=== PATIENT | female | born 1930 | race African-American/Black ===

== ENCOUNTER 2019-05-26 04:59 | Inpatient (IN) | payer MEDICARE, OTHER ==
[~2019-05-26] VITALS: Ht 172.7 cm; Wt 83.5 kg
[2019-05-26] MEDS ORDERED: SODIUM CHLORIDE 0.9% 1,000 ML IV ONE (05:21)
[2019-05-26 06:12] LABS: HEMATOCRIT. 37.6 % (36.0-48.0); HEMOGLOBIN. 12.8 g/dL (12.0-16.0); MEAN CORPUSCULAR HEMOGLOBIN 23.7 pg (28.0-32.0); MEAN CORPUSCULAR VOLUME 69.6 fL (81.0-99.0); RED CELL DISTRIBUTION WIDTH 32.2 % (11.6-14.6)
[2019-05-26 06:19] LABS: CHLORIDE 93 mEq/L (98-107)
[2019-05-26 06:54] LABS: CLARITY URINE CLEAR (CLEAR); COLOR URINE YELLOW (YELLOW); KETONES URINE NEGATIVE (NEGATIVE); LEUKOCYTE ESTERASE URINE 2+ (NEGATIVE); NITRITE URINE NEGATIVE (NEGATIVE); OCCULT BLOOD URINE NEGATIVE (NEGATIVE); PROTEIN URINE NEGATIVE (NEGATIVE); SPECIFIC GRAVITY URINE 1.005 (1.005-1.030)
[2019-05-26 07:18] LABS: PLATELET ESTIMATE DECREASED
[2019-05-26 07:20] LABS: PLATELET 77 x1000/uL (130-400)
[2019-05-26] MEDS ORDERED: IOHEXOL-300 100 ML BOTTLE ONE (07:37)
[2019-05-26] MEDS ORDERED: LEVOFLOXACIN 750MG PREMIX 150 ML IV ONE (08:45)
[2019-05-26 08:52] LABS: INR 1.6; PARTIAL THROMBOPLASTIN TIME 34.6 sec (23.4-31.0); PROTHROMBIN TIME 16.9 sec (9.6-11.0)
[2019-05-26] MEDS ORDERED: GUAIFENESIN 200MG/10ML SUGAR FREE UDC PO PRN (10:30)
[2019-05-26] MEDS ORDERED: HYDROCODONE/ACETAMINOPHEN 5/325MG TABLET PO PRN (10:30)
[2019-05-26] MEDS ORDERED: LORAZEPAM 0.5MG TABLET PO PRN (10:30)
[2019-05-26] MEDS ORDERED: CLONIDINE 0.1MG TABLET PO PRN (10:30)
[2019-05-26] MEDS: DEXT 5%/0.9% NACL 1,000 ML IV SCH ×2 (10:30→19:19)
[2019-05-26] MEDS ORDERED: IPRATROPIUM/ALBUTEROL 0.5-3(2.5)MG/3ML NEB NEB PRN (10:30)
[2019-05-26] MEDS ORDERED: ACETAMINOPHEN 650MG SUPP PR PRN (10:30)
[2019-05-26] MEDS ORDERED: ACETAMINOPHEN 650MG/20.3ML UDC GT PRN (10:30)
[2019-05-26] MEDS ORDERED: NA PHOS,M-B/NA PHOS,DI-BA ENEMA 118ML PR PRN (10:30)
[2019-05-26] MEDS ORDERED: MAGNESIUM/ALUMINUM HYDROXIDE/SIMETHICONE 30ML UDC PO PRN (10:30)
[2019-05-26] MEDS ORDERED: ONDANSETRON HCL 4MG/2ML INJ IV PRN (10:30)
[2019-05-26] MEDS ORDERED: DIPHENHYDRAMINE 50MG/ML VIAL IV PRN (10:30)
[2019-05-26] MEDS ORDERED: MORPHINE SULFATE 2 MG/ML CPJ (NOT FOR IM USE) IV PRN (10:30)
[2019-05-26] MEDS ORDERED: ACETAMINOPHEN 325MG TABLET PO PRN (10:30)
[2019-05-26] MEDS ORDERED: DOCUSATE SODIUM 100MG CAPSULE PO PRN (10:30)
[2019-05-26] MEDS: PANTOPRAZOLE SODIUM 40 MG/VIAL IV SCH ×2 (13:43→14:20)
[2019-05-26] MEDS ORDERED: PIPERACILLIN/TAZOBACTAM 3.375 G in DEXT 5% WATER 100 ML IV NR (14:00)
[2019-05-26 14:39] LABS: *AMPHETAMINES SCREEN URINE NEGATIVE (NEGATIVE); *BARBITURATES SCREEN URINE NEGATIVE (NEGATIVE); *BENZODIAZEPINES SCREEN URINE NEGATIVE (NEGATIVE); *COCAINE SCREEN URINE NEGATIVE (NEGATIVE)
[2019-05-26 14:40] LABS: CANNABINOID URINE SCREEN NEGATIVE (NEGATIVE); METHADONE URINE SCREEN NEGATIVE (NEGATIVE); OPIATES URINE SCREEN NEGATIVE (NEGATIVE); PHENCYCLIDINE URINE SCREEN NEGATIVE (NEGATIVE)
[2019-05-26] MEDS ORDERED: FUROSEMIDE 40MG/4ML VIAL IVP ONE (18:30)
[2019-05-26 21:11] VITALS: BP 124/77
[2019-05-26 21:58] VITALS: BP 129/59
[2019-05-26] MEDS: PIPERACILLIN/TAZOBACTAM 2.25 G in DEXTROSE 5% WATER 50 ML IV SCH (23:49)
[2019-05-27 00:22] VITALS: BP 97/39
[2019-05-27] MEDS ORDERED: FAMO20TA8 PO (03:43)
[2019-05-27] MEDS ORDERED: P20 PO (03:43)
[2019-05-27] MEDS ORDERED: VALS80TA30 PO (03:43)
[2019-05-27] MEDS ORDERED: ATEN50TA PO (03:43)
[2019-05-27 04:00] VITALS: BP 125/47
[2019-05-27] MEDS: PIPERACILLIN/TAZOBACTAM 2.25 G in DEXTROSE 5% WATER 50 ML IV SCH ×3 (05:33→17:00)
[2019-05-27 07:14] LABS: HEMATOCRIT. 33.8 % (36.0-48.0); HEMOGLOBIN. 11.6 g/dL (12.0-16.0); MEAN CORPUSCULAR HEMOGLOBIN 23.6 pg (28.0-32.0); MEAN CORPUSCULAR VOLUME 68.9 fL (81.0-99.0); RED CELL DISTRIBUTION WIDTH 31.5 % (11.6-14.6)
[2019-05-27 07:49] LABS: INR 1.9; PROTHROMBIN TIME 20.4 sec (9.6-11.0)
[2019-05-27 07:59] LABS: CHLORIDE 94 mEq/L (98-107)
[2019-05-27 08:00] VITALS: BP 140/55
[2019-05-27 08:13] LABS: LDL CHOLESTEROL 69 mg/dL (5-100)
[2019-05-27 08:14] LABS: HDL CHOLESTEROL 18 mg/dL (40-59); HEPATITIS B SURFACE ANTIGEN NEGATIVE; TOTAL IRON BINDING CAPACITY 233 ug/dL (250-450)
[2019-05-27 08:16] LABS: CREATINE KINASE 74 IU/L (26-192)
[2019-05-27 08:17] LABS: T4 FREE 1.58 ng/dL (0.76-1.46)
[2019-05-27 08:31] LABS: MEAN PLATELET VOLUME 10.3 fl (7.4-10.4); PLATELET 69 x1000/uL (130-400); PLATELET ESTIMATE DECREASED
[2019-05-27 08:43] LABS: HEPATITIS A AB IGM NEGATIVE (NEGATIVE)
[2019-05-27] MEDS: ASPIRIN 81MG TABLET PO SCH (09:00)
[2019-05-27] MEDS: METOPROLOL TARTRATE 25MG TABLET PO SCH ×2 (09:35→21:27)
[2019-05-27 12:45] VITALS: BP 135/56
[2019-05-27] MEDS ORDERED: LIDOCAINE HCL 1% 20ML VIAL (Pyxis) INJ ONE (13:16)
[2019-05-27] MEDS ORDERED: SODIUM BICARBONATE 4% (2.4MEQ) 5ML VIAL IV ONE (13:16)
[2019-05-27] MEDS ORDERED: DEXTROSE 10% WATER 500 ML IV ONE (14:30)
[2019-05-27 16:00] VITALS: BP 174/72
[2019-05-27] MEDS: BLOOD SUGAR DIAGNOSTIC STRIP TEST SCH ×2 (17:40→21:04)
[2019-05-27 20:00] VITALS: BP 129/65
[2019-05-27] MEDS: POTASSIUM CHLORIDE 20MEQ TABLET SR PO NR ×2 (20:11→21:04)
[2019-05-27] MEDS: FUROSEMIDE 40MG TABLET PO SCH (21:00)
[2019-05-28] VITALS: BP 124/70
[2019-05-28] MEDS: PIPERACILLIN/TAZOBACTAM 2.25 G in DEXTROSE 5% WATER 50 ML IV SCH ×4 (01:17→17:01)
[2019-05-28 04:00] VITALS: BP 102/58
[2019-05-28] MEDS ORDERED: POTASSIUM CHLORIDE 20MEQ/PACKET PO NR (06:00)
[2019-05-28] MEDS: BLOOD SUGAR DIAGNOSTIC STRIP TEST SCH ×4 (06:15→21:02)
[2019-05-28 08:00] VITALS: BP 120/62
[2019-05-28] MEDS: METOPROLOL TARTRATE 25MG TABLET PO SCH ×2 (09:34→21:03)
[2019-05-28] MEDS: PANTOPRAZOLE SODIUM 40 MG/VIAL IV SCH (09:34)
[2019-05-28] MEDS: ASPIRIN 81MG TABLET PO SCH (09:34)
[2019-05-28] MEDS: FUROSEMIDE 40MG TABLET PO SCH ×2 (09:34→21:00)
[2019-05-28 09:41] LABS: BASOPHILS % 1.5 % (0.0-2.0); EOSINOPHILS % 1.1 % (0.0-5.0); HEMATOCRIT. 32.9 % (36.0-48.0); HEMOGLOBIN. 11.1 g/dL (12.0-16.0); MEAN CORPUSCULAR HEMOGLOBIN 23.5 pg (28.0-32.0); MEAN CORPUSCULAR VOLUME 69.7 fL (81.0-99.0); MEAN PLATELET VOLUME 8.9 fl (7.4-10.4); MONOCYTES % 4.8 % (2.0-8.0); NEUTROPHILS % 78.6 % (40.0-76.0); PLATELET 65 x1000/uL (130-400); RED BLOOD CELL COUNT 4.72 mill/uL (4.2-5.4); RED CELL DISTRIBUTION WIDTH 31.8 % (11.6-14.6)
[2019-05-28 09:56] LABS: CHLORIDE 97 mEq/L (98-107)
[2019-05-28 12:00] VITALS: BP 112/41
[2019-05-28] MEDS ORDERED: MAGNESIUM 2 G PREMIX 50 ML IV NR (12:30)
[2019-05-28 13:55] LABS: CHLORIDE 95 mEq/L (98-107)
[2019-05-28 16:00] VITALS: BP 125/71
[2019-05-28 20:00] VITALS: BP 143/72
[2019-05-29] VITALS: BP 130/62
[2019-05-29] MEDS: PIPERACILLIN/TAZOBACTAM 2.25 G in DEXTROSE 5% WATER 50 ML IV SCH ×4 (00:10→18:22)
[2019-05-29 04:00] VITALS: BP 142/44
[2019-05-29] MEDS: BLOOD SUGAR DIAGNOSTIC STRIP TEST SCH ×4 (06:43→21:00)
[2019-05-29 07:14] LABS: BASOPHILS % 0.4 % (0.0-2.0); EOSINOPHILS % 1.8 % (0.0-5.0); HEMATOCRIT. 33.7 % (36.0-48.0); HEMOGLOBIN. 11.3 g/dL (12.0-16.0); MEAN CORPUSCULAR HEMOGLOBIN 23.3 pg (28.0-32.0); MEAN CORPUSCULAR VOLUME 69.7 fL (81.0-99.0); MONOCYTES % 8.1 % (2.0-8.0); NEUTROPHILS % 78.7 % (40.0-76.0); RED BLOOD CELL COUNT 4.84 mill/uL (4.2-5.4); RED CELL DISTRIBUTION WIDTH 31.4 % (11.6-14.6)
[2019-05-29 07:15] LABS: CHLORIDE 96 mEq/L (98-107)
[2019-05-29 07:17] LABS: INR 1.6; PROTHROMBIN TIME 16.7 sec (9.6-11.0)
[2019-05-29 08:00] VITALS: BP 142/55
[2019-05-29] MEDS: FUROSEMIDE 40MG TABLET PO SCH ×2 (09:36→22:13)
[2019-05-29] MEDS: ASPIRIN 81MG TABLET PO SCH (09:36)
[2019-05-29] MEDS: METOPROLOL TARTRATE 25MG TABLET PO SCH ×2 (09:37→21:00)
[2019-05-29] MEDS: PANTOPRAZOLE SODIUM 40 MG/VIAL IV SCH (09:37)
[2019-05-29] MEDS ORDERED: POTASSIUM CHLORIDE 20MEQ/PACKET PO NR (09:45)
[2019-05-29 10:12] LABS: MEAN PLATELET VOLUME 9.4 fl (7.4-10.4); PLATELET 64 x1000/uL (130-400)
[2019-05-29 12:00] VITALS: BP 139/74
[2019-05-29 16:00] VITALS: BP 131/54
[2019-05-29] MEDS ORDERED: LEVO500T2 MT (18:10)
[2019-05-29] MEDS ORDERED: FURO-151 MT (18:10)
[2019-05-29] MEDS ORDERED: POTA20TA82 MT (18:10)
[2019-05-29 20:00] VITALS: BP 122/68
[2019-05-30] VITALS: BP 116/66
[2019-05-30] MEDS: PIPERACILLIN/TAZOBACTAM 2.25 G in DEXTROSE 5% WATER 50 ML IV SCH ×4 (00:29→17:32)
[2019-05-30 04:00] VITALS: BP 125/72
[2019-05-30] MEDS: DEXTROSE 50% WATER 50ML SYRINGE IV PRN (07:04)
[2019-05-30] MEDS: BLOOD SUGAR DIAGNOSTIC STRIP TEST SCH ×3 (07:10→21:00)
[2019-05-30 08:00] VITALS: BP 116/83
[2019-05-30 09:25] LABS: BASOPHILS % 0.5 % (0.0-2.0); EOSINOPHILS % 1.5 % (0.0-5.0); HEMATOCRIT. 32.7 % (36.0-48.0); HEMOGLOBIN. 11.1 g/dL (12.0-16.0); LYMPHOCYTES % 12.8 % (20.0-50.0); MEAN CORPUSCULAR HEMOGLOBIN 23.8 pg (28.0-32.0); MONOCYTES % 7.9 % (2.0-8.0); NEUTROPHILS % 77.3 % (40.0-76.0); PLATELET 55 x1000/uL (130-400); RED BLOOD CELL COUNT 4.68 mill/uL (4.2-5.4); RED CELL DISTRIBUTION WIDTH 31.1 % (11.6-14.6)
[2019-05-30 09:34] LABS: CHLORIDE 96 mEq/L (98-107)
[2019-05-30] MEDS: FUROSEMIDE 40MG TABLET PO SCH ×2 (10:13→21:04)
[2019-05-30] MEDS: METOPROLOL TARTRATE 25MG TABLET PO SCH ×2 (10:13→21:04)
[2019-05-30] MEDS: ASPIRIN 81MG TABLET PO SCH (10:13)
[2019-05-30] MEDS: PANTOPRAZOLE SODIUM 40 MG/VIAL IV SCH (10:13)
[2019-05-30 12:00] VITALS: BP 124/74
[2019-05-30 16:00] VITALS: BP 131/79
[2019-05-30 17:07] LABS: ACTIN (SMOOTH MUSCLE) ANTIBODY 28 Units (0-19); MITOCHONDRIAL M2 AB <20.0 Units (0.0-20.0)
[2019-05-30 20:00] VITALS: BP 150/64
[2019-05-31] VITALS: BP_SYST 130; BP_SYST 190; BP_DIAS 65; BP_DIAS 83
[2019-05-31] MEDS: PIPERACILLIN/TAZOBACTAM 2.25 G in DEXTROSE 5% WATER 50 ML IV SCH ×4 (00:22→18:03)
[2019-05-31 04:00] VITALS: BP 135/56
[2019-05-31] MEDS: BLOOD SUGAR DIAGNOSTIC STRIP TEST SCH ×4 (06:23→21:00)
[2019-05-31 08:00] VITALS: BP 119/45
[2019-05-31] MEDS: FUROSEMIDE 40MG TABLET PO SCH ×3 (09:37→21:20)
[2019-05-31] MEDS: PANTOPRAZOLE SODIUM 40 MG/VIAL IV SCH (09:37)
[2019-05-31] MEDS: METOPROLOL TARTRATE 25MG TABLET PO SCH ×2 (09:37→21:00)
[2019-05-31 10:01] LABS: BASOPHILS % 0.4 % (0.0-2.0); HEMATOCRIT. 36.8 % (36.0-48.0); HEMOGLOBIN. 12.3 g/dL (12.0-16.0); LYMPHOCYTES % 23.5 % (20.0-50.0); MEAN CORPUSCULAR HEMOGLOBIN 23.7 pg (28.0-32.0); MEAN CORPUSCULAR VOLUME 71.1 fL (81.0-99.0); MONOCYTES % 7.8 % (2.0-8.0); NEUTROPHILS % 65.3 % (40.0-76.0); RED BLOOD CELL COUNT 5.18 mill/uL (4.2-5.4); RED CELL DISTRIBUTION WIDTH 31.2 % (11.6-14.6)
[2019-05-31 10:14] LABS: CHLORIDE 96 mEq/L (98-107)
[2019-05-31 11:11] LABS: PLATELET ESTIMATE DECREASED
[2019-05-31 11:13] LABS: PLATELET 49 x1000/uL (130-400)
[2019-05-31 11:14] LABS: MEAN PLATELET VOLUME 9.6 fl (7.4-10.4)
[2019-05-31] MEDS ORDERED: POTASSIUM CHLORIDE 20MEQ TABLET SR PO NR ×2 (11:15→13:00)
[2019-05-31] MEDS: POTASSIUM CHLORIDE 20MEQ TABLET SR PO NR ×3 (11:36→12:21)
[2019-05-31 12:00] VITALS: BP 80/39
[2019-05-31] MEDS: POTASSIUM CHLORIDE INJ 40 MEQ in DEXT 5% WATER 250 ML IV SCH ×2 (15:26→21:20)
[2019-05-31 16:00] VITALS: BP 110/74
[2019-05-31 20:00] VITALS: BP 101/56
[2019-05-31] MEDS ORDERED: FAMOTIDINE 20MG/2ML VIAL IV SCH (21:00)
[2019-06-01] VITALS: BP 143/96
[2019-06-01] MEDS: PIPERACILLIN/TAZOBACTAM 2.25 G in DEXTROSE 5% WATER 50 ML IV SCH ×5 (01:30→23:56)
[2019-06-01 04:00] VITALS: BP 103/66
[2019-06-01] MEDS: BLOOD SUGAR DIAGNOSTIC STRIP TEST SCH ×4 (06:30→21:00)
[2019-06-01 08:00] VITALS: BP 99/81
[2019-06-01] MEDS ORDERED: PANTOPRAZOLE SODIUM 40 MG/VIAL IV SCH (09:00)
[2019-06-01] MEDS: METOPROLOL TARTRATE 25MG TABLET PO SCH ×2 (09:00→21:00)
[2019-06-01] MEDS: FUROSEMIDE 40MG TABLET PO SCH ×2 (10:11→20:50)
[2019-06-01] MEDS: PHENOL/SODIUM PHENOLATE 1.4% SRPAY 177ML MM PRN ×2 (10:34→18:32)
[2019-06-01 12:00] VITALS: BP 114/51
[2019-06-01] MEDS: DEXTROSE 50% WATER 50ML SYRINGE IV PRN ×2 (13:29→14:18)
[2019-06-01 16:00] VITALS: BP 151/85
[2019-06-01] MEDS: PANTOPRAZOLE SODIUM 40 MG/VIAL IV SCH (18:32)
[2019-06-01] MEDS: METOCLOPRAMIDE HCL 10MG/2ML VIAL IV SCH ×2 (18:32→23:56)
[2019-06-01] MEDS: DEXT 5%/0.9% NACL 1,000 ML IV SCH (18:32)
[2019-06-01 20:00] VITALS: BP 108/65
[2019-06-02] VITALS: BP 100/78
[2019-06-02] MEDS: METOPROLOL TARTRATE 25MG TABLET PO SCH ×3 (03:15→21:45)
[2019-06-02 04:00] VITALS: BP 118/66
[2019-06-02] MEDS: PHENOL/SODIUM PHENOLATE 1.4% SRPAY 177ML MM PRN (05:07)
[2019-06-02] MEDS: METOCLOPRAMIDE HCL 10MG/2ML VIAL IV SCH ×2 (05:07→14:09)
[2019-06-02] MEDS: BLOOD SUGAR DIAGNOSTIC STRIP TEST SCH ×4 (07:05→22:05)
[2019-06-02 08:00] VITALS: BP 116/89
[2019-06-02] MEDS ORDERED: DIGOXIN 500MCG/2ML AMP IV NR (08:30)
[2019-06-02] MEDS: FUROSEMIDE 40MG TABLET PO SCH ×2 (08:39→21:45)
[2019-06-02] MEDS: PANTOPRAZOLE SODIUM 40 MG/VIAL IV SCH ×2 (08:39→17:00)
[2019-06-02 09:23] LABS: HEMATOCRIT. 38.1 % (36.0-48.0); HEMOGLOBIN. 12.7 g/dL (12.0-16.0); MEAN CORPUSCULAR HEMOGLOBIN 23.8 pg (28.0-32.0); MEAN CORPUSCULAR VOLUME 71.2 fL (81.0-99.0); RED BLOOD CELL COUNT 5.34 mill/uL (4.2-5.4); RED CELL DISTRIBUTION WIDTH 31.5 % (11.6-14.6)
[2019-06-02 09:31] LABS: CHLORIDE 99 mEq/L (98-107)
[2019-06-02 11:07] LABS: PLATELET ESTIMATE DECREASED
[2019-06-02 11:08] LABS: MEAN PLATELET VOLUME 8.9 fl (7.4-10.4); PLATELET 57 x1000/uL (130-400)
[2019-06-02] MEDS ORDERED: BARIUM SULFATE 176 GM SUSP.RECON ONE (11:18)
[2019-06-02] MEDS ORDERED: EZ-HD SUSPENSION(BARIUM SULFATE 340GM) PO ONE (11:18)
[2019-06-02] MEDS ORDERED: SIMETHICONE/SOD BICARB/CIT AC 1 EACH GRAN.EF.PK ONE (11:19)
[2019-06-02 12:00] VITALS: BP 121/86
[2019-06-02] MEDS ORDERED: HYDROCODONE/ACETAMINOPHEN 5/325MG TABLET PO PRN (14:15)
[2019-06-02 16:00] VITALS: BP 164/66
[2019-06-02] MEDS ORDERED: MIDAZOLAM HCL 5 MG/5 ML VIAL IV PRN (17:13)
[2019-06-02] MEDS ORDERED: MIDAZOLAM HCL 5 MG/5 ML VIAL ONE (17:16)
[2019-06-02] MEDS ORDERED: FENTANYL CITRATE/PF 50MCG/ML 2ML VIAL ONE (17:16)
[2019-06-02 20:00] VITALS: BP 147/74
[2019-06-02] MEDS: SUCRALFATE 1 G/10 ML UDC PO SCH (21:45)
[2019-06-03] VITALS: BP 109/71
[2019-06-03] MEDS: METOCLOPRAMIDE HCL 10MG/2ML VIAL IV SCH ×5 (00:12→18:29)
[2019-06-03] MEDS: NYSTATIN 100,000 UNITS/ML 5ML UDC SSW SCH ×5 (00:12→18:28)
[2019-06-03] MEDS: DEXT 5%/0.9% NACL 1,000 ML IV SCH (00:15)
[2019-06-03] MEDS: VISCOUS LIDOCAINE 2% 15 ML UDC PO SCH ×4 (00:21→18:28)
[2019-06-03 04:00] VITALS: BP 141/81
[2019-06-03] MEDS: BLOOD SUGAR DIAGNOSTIC STRIP TEST SCH ×4 (05:45→21:00)
[2019-06-03 06:48] LABS: HEMATOCRIT. 36.2 % (36.0-48.0); HEMOGLOBIN. 11.9 g/dL (12.0-16.0); MEAN CORPUSCULAR HEMOGLOBIN 23.8 pg (28.0-32.0); MEAN CORPUSCULAR VOLUME 72.3 fL (81.0-99.0); MEAN PLATELET VOLUME 8.6 fl (7.4-10.4); PLATELET 61 x1000/uL (130-400); RED BLOOD CELL COUNT 5.01 mill/uL (4.2-5.4); RED CELL DISTRIBUTION WIDTH 32.1 % (11.6-14.6)
[2019-06-03 07:12] LABS: CHLORIDE 99 mEq/L (98-107)
[2019-06-03 08:00] VITALS: BP 112/65
[2019-06-03] MEDS: SUCRALFATE 1 G/10 ML UDC PO SCH ×4 (08:53→21:46)
[2019-06-03] MEDS: FUROSEMIDE 40MG TABLET PO SCH ×2 (08:53→21:45)
[2019-06-03] MEDS: METOPROLOL TARTRATE 25MG TABLET PO SCH ×2 (08:54→21:46)
[2019-06-03] MEDS: PANTOPRAZOLE SODIUM 40 MG/VIAL IV SCH ×2 (09:00→18:28)
[2019-06-03 09:41] LABS: PLATELET ESTIMATE MARKEDLY DECREASED
[2019-06-03 12:00] VITALS: BP 128/59
[2019-06-03] MEDS ORDERED: POTASSIUM CHLORIDE INJ 40 MEQ in DEXT 5% WATER 250 ML IV NR (12:30)
[2019-06-03 16:00] VITALS: BP 115/60
[2019-06-03 20:00] VITALS: BP 128/55
[2019-06-04] VITALS: BP 122/59
[2019-06-04] MEDS: VISCOUS LIDOCAINE 2% 15 ML UDC PO SCH ×5 (01:08→21:00)
[2019-06-04] MEDS: NYSTATIN 100,000 UNITS/ML 5ML UDC SSW SCH ×4 (01:08→18:10)
[2019-06-04] MEDS: METOCLOPRAMIDE HCL 10MG/2ML VIAL IV SCH ×5 (01:08→23:50)
[2019-06-04 04:00] VITALS: BP 136/64
[2019-06-04] MEDS: DEXTROSE 50% WATER 50ML SYRINGE IV PRN (05:59)
[2019-06-04] MEDS: BLOOD SUGAR DIAGNOSTIC STRIP TEST SCH ×4 (06:07→21:00)
[2019-06-04 06:24] LABS: BASOPHILS % 0.1 % (0.0-2.0); HEMATOCRIT. 37.6 % (36.0-48.0); HEMOGLOBIN. 12.4 g/dL (12.0-16.0); LYMPHOCYTES % 21.6 % (20.0-50.0); MEAN CORPUSCULAR HEMOGLOBIN 23.7 pg (28.0-32.0); MEAN CORPUSCULAR VOLUME 71.8 fL (81.0-99.0); MONOCYTES % 9.3 % (2.0-8.0); RED BLOOD CELL COUNT 5.24 mill/uL (4.2-5.4); RED CELL DISTRIBUTION WIDTH 31.4 % (11.6-14.6)
[2019-06-04 08:00] VITALS: BP 128/49
[2019-06-04 08:52] LABS: PLATELET 63 x1000/uL (130-400)
[2019-06-04] MEDS: SUCRALFATE 1 G/10 ML UDC PO SCH ×4 (09:37→21:00)
[2019-06-04] MEDS: FUROSEMIDE 40MG TABLET PO SCH ×2 (09:37→21:00)
[2019-06-04] MEDS: PANTOPRAZOLE SODIUM 40 MG/VIAL IV SCH ×2 (09:37→18:10)
[2019-06-04] MEDS: METOPROLOL TARTRATE 25MG TABLET PO SCH ×2 (09:38→21:00)
[2019-06-04] MEDS ORDERED: POTASSIUM CHLORIDE 8 MEQ TABLET.SA PO NR (11:23)
[2019-06-04 12:00] VITALS: BP 124/52
[2019-06-04 16:00] VITALS: BP 98/64
[2019-06-04 20:00] VITALS: BP 120/51
[2019-06-05] VITALS: BP 129/69
[2019-06-05 04:00] VITALS: BP 139/73
[2019-06-05] MEDS: NYSTATIN 100,000 UNITS/ML 5ML UDC SSW SCH ×4 (06:00→17:14)
[2019-06-05] MEDS: METOCLOPRAMIDE HCL 10MG/2ML VIAL IV SCH ×3 (06:55→17:14)
[2019-06-05] MEDS: VISCOUS LIDOCAINE 2% 15 ML UDC PO SCH ×4 (07:02→19:59)
[2019-06-05] MEDS: SUCRALFATE 1 G/10 ML UDC PO SCH ×4 (07:02→19:58)
[2019-06-05] MEDS: BLOOD SUGAR DIAGNOSTIC STRIP TEST SCH ×4 (07:03→21:00)
[2019-06-05 08:00] VITALS: BP 143/43
[2019-06-05] MEDS: METOPROLOL TARTRATE 25MG TABLET PO SCH (08:39)
[2019-06-05] MEDS: PANTOPRAZOLE SODIUM 40 MG/VIAL IV SCH ×2 (08:39→17:14)
[2019-06-05] MEDS: FUROSEMIDE 40MG TABLET PO SCH ×2 (08:39→19:53)
[2019-06-05 12:00] VITALS: BP 96/72
[2019-06-05 16:00] VITALS: BP 122/62
[2019-06-05 20:00] VITALS: BP 132/59
[2019-06-06] VITALS: BP 108/60
[2019-06-06] MEDS: METOCLOPRAMIDE HCL 10MG/2ML VIAL IV SCH ×4 (00:02→17:11)
[2019-06-06] MEDS: METOPROLOL TARTRATE 25MG TABLET PO SCH ×3 (00:08→21:00)
[2019-06-06] MEDS: NYSTATIN 100,000 UNITS/ML 5ML UDC SSW SCH ×4 (00:10→17:11)
[2019-06-06 04:00] VITALS: BP 115/66
[2019-06-06] MEDS: SUCRALFATE 1 G/10 ML UDC PO SCH ×4 (06:49→21:09)
[2019-06-06] MEDS: VISCOUS LIDOCAINE 2% 15 ML UDC PO SCH ×4 (06:52→21:09)
[2019-06-06] MEDS: BLOOD SUGAR DIAGNOSTIC STRIP TEST SCH ×3 (07:18→17:16)
[2019-06-06 08:00] VITALS: BP 128/59
[2019-06-06] MEDS: FUROSEMIDE 40MG TABLET PO SCH ×2 (08:34→21:09)
[2019-06-06] MEDS: PANTOPRAZOLE SODIUM 40 MG/VIAL IV SCH ×2 (08:34→17:11)
[2019-06-06 12:00] VITALS: BP 125/83
[2019-06-06 16:00] VITALS: BP 122/62
[2019-06-06 20:00] VITALS: BP 114/52
[2019-06-07] VITALS: BP 108/54
[2019-06-07] MEDS: NYSTATIN 100,000 UNITS/ML 5ML UDC SSW SCH ×3 (00:16→12:48)
[2019-06-07] MEDS: METOCLOPRAMIDE HCL 10MG/2ML VIAL IV SCH ×3 (00:16→12:48)
[2019-06-07] MEDS: BLOOD SUGAR DIAGNOSTIC STRIP TEST SCH ×2 (00:19→07:40)
[2019-06-07 04:00] VITALS: BP 102/58
[2019-06-07 08:00] VITALS: BP 139/59
[2019-06-07] MEDS: FUROSEMIDE 40MG TABLET PO SCH (09:32)
[2019-06-07] MEDS: VISCOUS LIDOCAINE 2% 15 ML UDC PO SCH ×2 (09:33→12:48)
[2019-06-07] MEDS: PANTOPRAZOLE SODIUM 40 MG/VIAL IV SCH (09:33)
[2019-06-07] MEDS: SUCRALFATE 1 G/10 ML UDC PO SCH ×2 (09:33→12:48)
[2019-06-07] MEDS: METOPROLOL TARTRATE 25MG TABLET PO SCH (09:33)
[2019-06-07 09:44] LABS: HEMATOCRIT 38.6 % (36.0-48.0); HEMOGLOBIN 12.8 g/dL (12.0-16.0); MEAN CORPUSCULAR HEMOGLOBIN 23.8 pg (28.0-32.0); MEAN CORPUSCULAR VOLUME 71.7 fL (81.0-99.0); PLATELET 57 x1000/uL (130-400); RED BLOOD CELL COUNT 5.39 mill/uL (4.2-5.4); RED CELL DISTRIBUTION WIDTH 32.1 % (11.6-14.6)
[2019-06-07 12:00] VITALS: BP 104/48
[2019-06-07] MEDS ORDERED: KCL 20MEQ/100ML PREMIX 100 ML IV SCH (12:00)
[2019-06-07 15:02] VITALS: BP 140/70
[2019-06-07 16:00] VITALS: BP 140/70
== END 2019-06-07 18:14 | disposition hospice, home (50) | DRG 70 ==
LOC: ER 04:59 → 7WST 08:40 → SUPCPDRO 15:02 → ENRESERV 20:16
PROVIDERS: ADMIT Internal Medicine; ATTEND Internal Medicine
PROC: 0W9G3ZZ Drainage of Peritoneal Cavity, Percutaneous Approach (ICD-10-PCS; principal; 2019-05-27)
PROC: 02HV33Z Insertion of Infusion Device into Superior Vena Cava, Percutaneous Approach (ICD-10-PCS; 2019-05-28)
PROC: B548ZZA Ultrasonography of Superior Vena Cava, Guidance (ICD-10-PCS; 2019-05-28)
PROC: B5181ZA Fluoroscopy of Superior Vena Cava using Low Osmolar Contrast, Guidance (ICD-10-PCS; 2019-05-28)
PROC: 0DB78ZX Excision of Stomach, Pylorus, Via Natural or Artificial Opening Endoscopic, Diagnostic (ICD-10-PCS; 2019-06-02)
DX: G93.40 Encephalopathy, unspecified (principal); I21.4 Non-ST elevation (NSTEMI) myocardial infarction; I50.33 Acute on chronic diastolic (congestive) heart failure; R18.8 Other ascites; E87.1 Hypo-osmolality and hyponatremia; E87.2 Acidosis; N39.0 Urinary tract infection, site not specified; D68.9 Coagulation defect, unspecified; I31.3 Pericardial effusion (noninflammatory); K25.9 Gastric ulcer, unspecified as acute or chronic, without hemorrhage or perforation; K20.8 Other esophagitis; B96.89 Other specified bacterial agents as the cause of diseases classified elsewhere; E16.2 Hypoglycemia, unspecified; I11.0 Hypertensive heart disease with heart failure; I48.0 Paroxysmal atrial fibrillation; K76.9 Liver disease, unspecified; K21.9 Gastro-esophageal reflux disease without esophagitis; K80.20 Calculus of gallbladder without cholecystitis without obstruction; K29.70 Gastritis, unspecified, without bleeding; D69.59 Other secondary thrombocytopenia; E88.09 Other disorders of plasma-protein metabolism, not elsewhere classified; I27.20 Pulmonary hypertension, unspecified; B96.20 Unspecified Escherichia coli [E. coli] as the cause of diseases classified elsewhere; D25.9 Leiomyoma of uterus, unspecified; E87.6 Hypokalemia; K75.4 Autoimmune hepatitis; Z91.81 History of falling; Z88.7 Allergy status to serum and vaccine; Z88.8 Allergy status to other drugs, medicaments and biological substances; Z79.899 Other long term (current) drug therapy
CPT/HCPCS: 36415; 36573; 49083; 71045; 74018; 74177; 74181; 76700; 76937; 80048; 80053; 80061; 80305; 81003; 82040; 82105; 82140; 82378; 82550; 82553; 82962; 83516; 83540; 83550; 83605; 83615; 83735; 83880; 84132; 84439; 84443; 84478; 84484; 85025; 85027; 86038; 86301; 86705; 86709; 86803; 86850; 86900; 87077; 87186; 87340; 88108; 88305; 88312; 88313; 92610; 93005; 93306; 93970; 96365; 97110; 97162; 97166; 99285; C1725; C9113; J1160; J1940; J1956; J2250; J2543; J2765; J3010; J3475; J3480; J3490; J7030; J7042; J7060; J7517; Q9967